=== PATIENT | female | born 1995 | race Caucasian/White ===

== ENCOUNTER 2017-05-29 13:27 | Emergency (ER) | payer OTHER ==
[~2017-05-29] VITALS: Ht 165.1 cm; Wt 88.0 kg
[~2017-05-29 13:27] MED LIST: CIPRO500 MG PO; CIPROFLOXACIN500 M1 PO; CLEOCIN HCL300 MG PO; DIFLUCAN200 MG PO; FLAGYL500 MG PO; FLEXERIL PO; HYDROCODONE-AP1 EAC6 PO; IBUPROFEN 800800 M1 PO; KEFLEX500 M1 PO; KEFLEX500 MG PO; LIDOCAINE VISC100 ML SWISH&SPIT; NOHOMEMEDICATIONS; NORCO 5-325 TA1 EACH PO; NYSTATIN 100,0015 G1 TOP; ONDANSETRON HCL4 M2; PHENAZOPYRIDIN200 M2 PO; PROMS25 WY; SKELAXIN 800 M800 M1 PO; TRAMADOL 50 MG50 MG PO; ZOFRAN ODT4 MG PO
[2017-05-29] MEDS ORDERED: DELTASONE20 MG PO (14:36)
[2017-05-29 14:49] VITALS: BP 109/74
== END 2017-05-29 14:49 | disposition home or self-care (01) ==
LOC: M.ERS 13:27
DX: J03.90 Acute tonsillitis, unspecified (principal)

== ENCOUNTER 2017-10-15 13:06 | Emergency (ER) | payer OTHER ==
[~2017-10-15] VITALS: Ht 165.1 cm; Wt 81.2 kg
[~2017-10-15 13:06] MED LIST changes: +DELTASONE20 MG PO
[2017-10-15 14:07] LABS: URINE BILIRUBIN NEGATIVE (Negative); URINE BLOOD NEGATIVE (Negative); URINE CLARITY HAZY; URINE COLOR YELLOW; URINE GLUCOSE-RANDOM NEGATIVE (Negative); URINE KETONES NEGATIVE (Negative); URINE LEUKOCYTES-REFLEX 1+ (Negative); URINE NITRITE-REFLEX NEGATIVE (Negative); URINE PROTEIN NEGATIVE (Negative)
[2017-10-15 14:23] LABS: SQUAMOUS >10 Many /LPF (0-3)
[2017-10-15 14:24] LABS: BACTERIA-REFLEX >30 Many /HPF (None Seen); CASTS None Seen /LPF (None Seen); CRYSTALS None Seen /LPF (None Seen); MUCUS 0-3 Light strn/LPF (None Seen); URINE RBC None Seen /HPF (0-2); URINE WBC-REFLEX 6-15 Few /HPF (0-5)
[2017-10-15] MEDS ORDERED: FLAGYL500 M1 PO (14:39)
[2017-10-15 14:47] VITALS: BP 122/62
== END 2017-10-15 14:48 | disposition home or self-care (01) ==
LOC: M.ERS 13:06
PROVIDERS: Nurse Practitioner Family
DX: N76.0 Acute vaginitis (principal); B96.89 Other specified bacterial agents as the cause of diseases classified elsewhere

== ENCOUNTER 2018-02-21 15:34 | Emergency (ER) | payer OTHER ==
[~2018-02-21] VITALS: Ht 165.1 cm; Wt 82.6 kg
[~2018-02-21 15:34] MED LIST changes: +FLAGYL500 M1 PO
[2018-02-21] MEDS ORDERED: NOHOMEMEDICATIONS (15:55)
[2018-02-21 16:26] LABS: URINE BILIRUBIN NEGATIVE (Negative); URINE BLOOD TRACE (Negative); URINE CLARITY CLEAR; URINE COLOR YELLOW; URINE GLUCOSE-RANDOM NEGATIVE (Negative); URINE KETONES NEGATIVE (Negative); URINE LEUKOCYTES-REFLEX NEGATIVE (Negative); URINE PROTEIN NEGATIVE (Negative); URINE SPECIFIC GRAVITY >= 1.030 (1.005-1.030); URINE UROBILINOGEN 0.2 E.U./dl (0.2-1.0)
[2018-02-21 16:38] LABS: URINE NITRITE-REFLEX POSITIVE (Negative)
[2018-02-21 16:40] LABS: SQUAMOUS 0-3 Few /LPF (0-3)
[2018-02-21 16:41] LABS: BACTERIA-REFLEX None Seen /HPF (None Seen); CASTS None Seen /LPF (None Seen); CRYSTALS None Seen /LPF (None Seen); URINE RBC None Seen /HPF (0-2); URINE WBC-REFLEX None Seen /HPF (0-5)
[2018-02-21] MEDS ORDERED: MACROBID 100 M100 M1 PO (16:57)
[2018-02-21] MEDS ORDERED: PYRIDIUM200 MG PO (16:57)
[2018-02-21 17:04] VITALS: BP 98/58
== END 2018-02-21 17:05 | disposition home or self-care (01) ==
LOC: M.ERS 15:34
PROVIDERS: Nurse Practitioner Family
DX: N39.0 Urinary tract infection, site not specified (principal)

== ENCOUNTER 2018-08-19 17:27 | Emergency (ER) | payer OTHER ==
[~2018-08-19] VITALS: Ht 165.1 cm; Wt 77.1 kg
[~2018-08-19 17:27] MED LIST changes: +MACROBID 100 M100 M1 PO; +PYRIDIUM200 MG PO
[2018-08-19] MEDS ORDERED: LIDOCAINE VISC100 ML SWISH&SPIT (17:54)
[2018-08-19] MEDS ORDERED: AMOXICILLIN 50500 MG PO (17:54)
[2018-08-19 18:06] VITALS: BP 105/64
== END 2018-08-19 18:06 | disposition home or self-care (01) ==
LOC: M.ERS 17:27
DX: K08.89 Other specified disorders of teeth and supporting structures (principal)

== ENCOUNTER 2019-10-02 11:32 | Emergency (ER) | payer OTHER ==
[~2019-10-02] VITALS: Ht 172.7 cm; Wt 77.1 kg
[~2019-10-02 11:32] MED LIST changes: +AMOXICILLIN 50500 MG PO
[2019-10-02 12:35] LABS: URINE BILIRUBIN NEGATIVE (Negative); URINE BLOOD TRACE (Negative); URINE CLARITY CLEAR; URINE COLOR YELLOW; URINE GLUCOSE-RANDOM NEGATIVE (Negative); URINE KETONES NEGATIVE (Negative); URINE LEUKOCYTES-REFLEX NEGATIVE (Negative); URINE NITRITE-REFLEX NEGATIVE (Negative); URINE PROTEIN NEGATIVE (Negative); URINE SPECIFIC GRAVITY >= 1.030 (1.005-1.030); URINE UROBILINOGEN 0.2 E.U./dl (0.2-1.0)
[2019-10-02] MEDS ORDERED: DIFLUCAN150 MG PO (13:31)
[2019-10-02] MEDS ORDERED: MEDROLDOSEPACK PO (13:31)
[2019-10-02] MEDS ORDERED: FLAGYL500 M1 PO (13:31)
[2019-10-02] MEDS ORDERED: TRIAMCINOLONE A80 G2 TOP (13:31)
[2019-10-02 13:42] VITALS: BP 113/75
== END 2019-10-02 13:43 | disposition home or self-care (01) ==
LOC: M.ERS 11:32
PROVIDERS: Physician Assistant
DX: N76.0 Acute vaginitis (principal); B96.89 Other specified bacterial agents as the cause of diseases classified elsewhere; L25.9 Unspecified contact dermatitis, unspecified cause; B37.3 Candidiasis of vulva and vagina

== ENCOUNTER 2020-02-26 12:01 | Emergency (ER) | payer OTHER, MEDICAID ==
[~2020-02-26] VITALS: Ht 170.2 cm; Wt 79.4 kg
[~2020-02-26 12:01] MED LIST changes: +DIFLUCAN150 MG PO; +MEDROLDOSEPACK PO; +TRIAMCINOLONE A80 G2 TOP
[2020-02-26 12:20] LABS: URINE BILIRUBIN NEGATIVE (Negative); URINE BLOOD NEGATIVE (Negative); URINE CLARITY CLEAR; URINE COLOR YELLOW; URINE GLUCOSE-RANDOM NEGATIVE (Negative); URINE KETONES NEGATIVE (Negative); URINE LEUKOCYTES-REFLEX NEGATIVE (Negative); URINE NITRITE-REFLEX NEGATIVE (Negative); URINE PROTEIN NEGATIVE (Negative); URINE SPECIFIC GRAVITY 1.025 (1.005-1.030)
[2020-02-26 14:04] VITALS: BP 121/70
== END 2020-02-26 14:05 | disposition left against medical advice (07) ==
LOC: M.ERS 12:01
PROVIDERS: Nurse Practitioner Family
DX: N89.8 Other specified noninflammatory disorders of vagina (principal)